=== PATIENT | male | born 1990 | race Two or more races ===

== ENCOUNTER 2021-03-02 10:21 | Emergency (ER) | payer OTHER ==
[~2021-03-02] VITALS: Ht 177.8 cm; Wt 88.0 kg
[2021-03-02] MEDS ORDERED: HUMALOG100 UNIT/2 (10:35)
== END 2021-03-02 12:37 | disposition home or self-care (01) ==
LOC: ER 10:21
DX: L08.89 Other specified local infections of the skin and subcutaneous tissue (principal); S80.212S Abrasion, left knee, sequela; S80.211S Abrasion, right knee, sequela; W18.09XS Striking against other object with subsequent fall, sequela